=== PATIENT | male | born 1970 | race Caucasian/White ===

== ENCOUNTER 2018-03-08 08:01 | Outpatient (CLI) | payer OTHER ==
[2018-03-08] MEDS ORDERED: Iopamidol 370 76% 100 ML VIAL ONE (09:39)
--- NOTE | 2018-03-08 10:03 | CT ---
CTA BRAIN: HISTORY: Syncope and collapse. FINDINGS: Noncontrast-enhanced CT images of the brain are performed followed by contrast-enhanced CT images bra in and CTA images brain. Two-D and 3D reconstructed images performed on an independent 3D work stati on. Noncontrast-enhanced CT images of the brain demonstrate an area of old infarction in the left cerebel lum. No evidence of acute intracranial masses or lesions seen. CTA images demonstrate normal flow in the internal carotid arteries bilaterally. Good flow is seen i n the LEE, MCA, and [employer] vessels. The right and left vertebral arteries as well as basilar artery are hypoplastic. IMPRESSION: 1. Normal intracranial CTA. 2. 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 POS: YANETH
== END 2018-03-08 08:02 | disposition home or self-care (01) ==
LOC: CT 08:01
PROVIDERS: ATTEND Family Medicine
DX: R55 Syncope and collapse (principal); Z86.73 Personal history of transient ischemic attack (TIA), and cerebral infarction without residual deficits
CPT/HCPCS: 70496